=== PATIENT | female | born 1965 | race African-American/Black ===

== ENCOUNTER 2018-06-02 08:12 | Emergency (ER) | payer SELFPAY ==
[2018-06-02] MEDS ORDERED: Ibuprofen 800 MG TAB ONE (09:03)
--- NOTE | 2018-06-02 09:36 | RAD ---
4 VIEWS RIGHT KNEE: Date; 06/02/18 COMPARISON: None. HISTORY: Right knee pain for 2 months. FINDINGS: Four views of the right knee show no evidence of acute fracture or dislocation. No degenerative cisneros es are seen. No knee effusion is seen. IMPRESSION: No evidence of acute osseous abnormality. POS: [facility]
== END 2018-06-02 10:15 ==
LOC: ERS 08:12
DX: M25.561 Pain in right knee (principal); I10 Essential (primary) hypertension; F31.9 Bipolar disorder, unspecified; Z79.899 Other long term (current) drug therapy